=== PATIENT | male | born 1970 | race Caucasian/White ===

== ENCOUNTER 2018-07-13 21:13 | Emergency (ER) | payer OTHER, SELFPAY ==
[2018-07-13 21:22] VITALS: BP 159/103; PULSE 68; RESP 16; TEMP 36.6; O2SAT 100
--- NOTE | 2018-07-13 22:42 | ED_ITS ---
HPI - Neck Pain/Injury General Chief Complaint: Neck Pain/Injury Stated Complaint: RT SIDED NECK SWELLING Time Seen by Provider: 07/13/18 22:02 Source: patient Mode of arrival: ambulatory Limitations: no limitations History of Present Illness HPI Narrative: Patient states that he had sudden onset of swelling under his right jaw. He states it occurred while he was eating, but he did not notice it at its full extent until he was finished eating. Patient denies pain he states there is just a pressure sensation. Patient does feel that the swelling has gone down in the ensuing hour, the patient is concerned about why this happened. He states this is never happened before. He is not aware of any congenital anomalies in the neck. He has not had any recent illnesses. Specifically no upper respiratory symptoms or sore throat. Patient denies fevers no dental pain or trauma. He states his wisdom teeth have been removed. Patient denies neck trauma. Onset (ago): hour(s) Place: home Radiation: right lateral Quality: dull Duration: improved Relieving factors: none Exacerbating factors: none Associated symptoms: none Related Data Home Medications Medication Instructions Recorded Confirmed No Known Home Medications 07/13/18 07/13/18 Allergies Allergy/AdvReac Type Severity Reaction Status Date / Time No Known Drug Allergies Allergy Verified 07/13/18 21:28 Review of Systems Review of Systems All systems reviewed & are unremarkable except as noted in HPI and below Constitutional Denies chills, Denies fever(s), Denies lethargy and Denies weakness Eyes Denies change in vision, Denies eye discharge, Denies irritation and Denies loss of vision ENT Ears, Nose, Mouth, and Throat: Denies change in voice, Denies neck pain and Denies sore throat Cardiovascular Denies chest pain, Denies irregular heart rhythm, Denies lightheadedness, Denies palpitations, Denies dyspnea, Denies dyspnea on exertion and Denies orthopnea Respiratory Denies cough, Denies dyspnea, Denies dyspnea on exertion and Denies wheezing Gastrointestinal Gastrointestinal: Denies abdominal pain, Denies change in bowel habits, Denies diarrhea, Denies nausea and Denies vomiting Genitourinary Denies hematuria, Denies flank pain, Denies urinary incontinence and Denies urinary urgency Musculoskeletal Denies neck pain Integumentary/Breasts Denies pruritus, Denies erythema, Denies rash and Denies wounds Neurologic Denies confusion, Denies loss of vision and Denies weakness Psychiatric Denies anxiety, Denies confusion, Denies depression, Denies homicidal ideation and Denies suicidal ideation Endocrine Denies palpitations Hematologic/Lymphatic Denies easy bruising Allergic/Immunologic Denies wheezing PFSH Social History Smoking Status: Never smoker Exam Initial Vital Signs Initial Vital Signs: Vital Signs Temperature 97.9 F 07/13/18 21:22 Pulse Rate 68 07/13/18 21:22 Respiratory Rate 16 07/13/18 21:22 Blood Pressure 159/103 H 07/13/18 21:22 Pulse Oximetry 100 07/13/18 21:22 Const General: cooperative and well developed Nutritional Appearance: well nourished Orientation: alert, awake, oriented x3 and not confused HENMT Head: normocephalic and atraumatic Ears: external ears normal Nose: external nose normal and No nasal discharge Face and sinus: sinuses nontender, face symmetric, no sinus tenderness and No dry mucous membranes Mouth: oral mucosae normal, moist mucous membranes and other (No tenderness or swelling of the floor of the mouth.) Teeth and gingiva: dentition normal Throat: tonsils normal and uvula midline Eyes General: appearance normal, both eyes and all related structures Eyelids: eyelids normal Conjunctivae: conjunctivae normal Sclera: sclerae normal Pupils: PERRL EOM: EOM intact bilaterally Neck Neck: full ROM, no meningeal signs, trachea midline, supple and anterior neck swelling (Patient has moderate enlargement of his right submandibular area. There is no distinct mass. No lymphadenopathy. No erythema or induration. No tenderness. No fluctuance.) Thyroid: thyroid normal Lymphatic: No lymphadenopathy Resp Effort & Inspection: normal respiratory effort and able to speak in complete sentences Back/Spine/Pelvis Cervical Spine: cervical ROM normal, No cervical muscular tenderness, No pain with cervical ROM and No cervical spinal tenderness Skin General: no rashes or lesions noted Neuro General: alert, awake and oriented x3 Extrem General: full ROM Psych Appearance: grossly normal Mental Status: mental status grossly normal Speech and Movement: speech and movement normal Course Hospital Course: I discussed with the patient the various potential causes of his submandibular swelling. I most strongly suspected submandibular gland pathology, due to the sudden appearance of the swelling, as well as the association with eating and the improvement since patient has ceased eating. He was sent for CT scan to evaluate for this and other pathology, and was found to have sialoadenitis of the submandibular gland on the right without a definite stone. I have discussed with the patient the symptomatic treatments for submandibular sialoadenitis, including using sialagogues such as lemon candies, applying heat , and massaging the area. The patient expresses understanding. No emergent condition has been identified, and patient stable for discharge home. Vital Signs - 8 hr 07/14/18 00:53 Pulse Rate 65 Respiratory Rate 15 Blood Pressure 148/100 H Pulse Oximetry 97 MDM - Neck Pain/Injury Differential Diagnosis Likely other Medical Records Attestation: I reviewed the patient's medical records. Imaging Data CT soft tissue neck with IV contrast: Radiologist's impression: PROCEDURE: CT SOFT TISSUE NECK W CON INDICATIONS: Right sided neck swelling TECHNIQUE: After the administration of intravenous contrast, 3.0 mm axial sections acquired from the sella to the aortic arch. Additional oblique axial 3.0 mm sections acquired through the pharynx. 3 mm thick coronal and sagittal reformats were generated. For radiation dose reduction, the following was used: automated exposure control. COMPARISON: None. FINDINGS: Image quality: Excellent. Lymph nodes: No enlarged lymph nodes seen throughout the neck. Vessels: Visualized vasculature appears patent. Neck spaces: The oropharynx, nasopharynx, and pharynx demonstrate no mucosal lesions. The vocal cords, false vocal cords, pyriform sinuses, epiglottis, vallecula, and tongue base all appear normal. Extramucosal spaces appear unremarkable. Glands: Mild enlargement of the right submandibular gland is noted. Mild inflammatory changes noted adjacent to the right submandibular gland. No right submandibular gland calcified stone. The left submandibular gland is normal in appearance. The parotid glands appear normal. Thyroid gland is within normal limits. Miscellaneous: Visualized brain and orbits appear normal. Lung apices appear clear. Superficial soft tissues appear normal. Bones: No suspicious bony lesions. Spine degenerative disc changes noted. Visualized sinuses and mastoids appear unremarkable. IMPRESSION: 1. Right submandibular sialoadenitis without definite ductal stone. 2. No abscess. Dictated by: Latosha Hernandez MD, PhD on 07/14/2018 at 8:06 Approved by: Latosha Hernandez MD, PhD on 07/14/2018 at 8:10 Discharge Plan Departure Patient Disposition: Home Clinical Impression: Submandibular gland swelling Discharge Date/Time: 07/14/18 00:55 Interventions: ED Discharge Assessment Last Done: 07/14/18 00:53 Activity Restrictions/Additional Instructions: Your CT scan shows enlargement and inflammation of your submandibular salivary gland. The duct that drains the gland is also slightly enlarged, which indicates obstruction, most likely from a tiny stone. However, at this time, the stone is no longer visible, and has likely passed on its own. This is most likely why you have noticed some improvement in the swelling. Given that you do not have any signs of infection, but gland should continue to go down on its own , and return to its normal size. Should you have symptoms like this in the future, sucking on lemon candies and applying hot pack to the gland area can and help encourage the gland to drain. If you develop redness or firmness of the gland with pain and fever, you may have an infection of the gland, and should be seen by your doctor or in an urgent or emergent setting to get antibiotics. Prescriptions: No Action No Known Home Medications RF: 0 Referrals: [facility] [Provider Group] Stephen Cook MD [Non-Staff] -
--- NOTE | 2018-07-13 22:58 | DI.CT.S_ITS ---
PROCEDURE: CT SOFT TISSUE NECK W CON INDICATIONS: Right sided neck swelling TECHNIQUE: After the administration of intravenous contrast, 3.0 mm axial sections acquired from the sella to the aortic arch. Additional oblique axial 3.0 mm sections acquired through the pharynx. 3 mm thick coronal and sagittal reformats were generated. For radiation dose reduction, the following was used: automated exposure control. COMPARISON: None. FINDINGS: Image quality: Excellent. Lymph nodes: No enlarged lymph nodes seen throughout the neck. Vessels: Visualized vasculature appears patent. Neck spaces: The oropharynx, nasopharynx, and pharynx demonstrate no mucosal lesions. The vocal cords, false vocal cords, pyriform sinuses, epiglottis, vallecula, and tongue base all appear normal. Extramucosal spaces appear unremarkable. Glands: Mild enlargement of the right submandibular gland is noted. Mild inflammatory changes noted adjacent to the right submandibular gland. No right submandibular gland calcified stone. The left submandibular gland is normal in appearance. The parotid glands appear normal. Thyroid gland is within normal limits. Miscellaneous: Visualized brain and orbits appear normal. Lung apices appear clear. Superficial soft tissues appear normal. Bones: No suspicious bony lesions. Spine degenerative disc changes noted. Visualized sinuses and mastoids appear unremarkable. IMPRESSION: 1. Right submandibular sialoadenitis without definite ductal stone. 2. No abscess. Dictated by: Latosha Hernandez MD, PhD on 07/14/2018 at 8:06 Approved by: Latosha Hernandez MD, PhD on 07/14/2018 at 8:10
[2018-07-14 00:53] VITALS: BP 148/100; PULSE 65; RESP 15; O2SAT 97
== END 2018-07-14 00:55 | disposition home or self-care (01) ==
PROVIDERS: Emergency Provider Emergency Medicine
DX: R60.9 Edema, unspecified (principal)
CPT/HCPCS: 36591; 70491; 99283; 99285; Q9967

== ENCOUNTER → 2020-10-31 11:46 | Outpatient (CLI) | payer OTHER, SELFPAY ==
[2020-10-31 13:33] LABS: Alanine Aminotransferase 25 IU/L (<50); Albumin 4.3 g/dL (3.5-5.0); Albumin Globulin Ratio 1.4 (1.0-2.8); Alkaline Phosphatase 85 U/L (38-126); Aspartate Aminotransferase 26 IU/L (17-59); BUN Creatinine Ratio 23.7 (6-22); Bilirubin Total 2.1 mg/dL (0.2-1.3); Blood Urea Nitrogen 23 mg/dL (9-20); Calcium 9.4 mg/dL (8.4-10.2); Carbon Dioxide 30 mmol/L (22-32); Chloride 103 mmol/L (98-107); Cholesterol 237 mg/dL (140-199); Estimated Glomerular Filt Rate > 60.0 mL/min (>60); Globulin 3.1 g/dL (1.7-4.1); Glucose 95 mg/dL (70-100); HDL Cholesterol 41 mg/dL (40-60); HEMOLYSIS < 15 (0-50); LDL Cholesterol Calculated 160 mg/dL (<100); Potassium 4.3 mmol/L (3.4-5.1); Sodium 139 mmol/L (137-145); Total Protein 7.4 g/dL (6.3-8.2); Triglycerides 180 mg/dL (35-150)
== END ==
PROVIDERS: PCP Internal Medicine; Referring Provider Internal Medicine; Visit Provider Internal Medicine
DX: Z13.1 Encounter for screening for diabetes mellitus (principal); Z13.220 Encounter for screening for lipoid disorders; Z13.6 Encounter for screening for cardiovascular disorders; I10 Essential (primary) hypertension
CPT/HCPCS: 36415; 80053; 80061; 84443

== ENCOUNTER → 2020-12-15 16:42 | Outpatient (CLI) | payer OTHER, SELFPAY ==
[2020-12-21 07:10] LABS: Percent Free Testosterone 3.96 % (1.50-4.20); Testosterone Free 12.26 ng/dL (5.00-21.00); Testosterone Total 309.6 ng/dL (264.0-916.0)
== END ==
PROVIDERS: PCP Internal Medicine; Referring Provider Internal Medicine; Visit Provider Internal Medicine
DX: E29.1 Testicular hypofunction (principal)
CPT/HCPCS: 36415; 84402; 84403

== ENCOUNTER → 2020-12-16 11:42 | Outpatient (CLI) | payer OTHER, SELFPAY ==
[2020-12-17 09:51] LABS: Fecal Immunochemical Test Negative (Negative)
== END ==
PROVIDERS: PCP Internal Medicine; Referring Provider Internal Medicine; Visit Provider Internal Medicine
DX: Z12.11 Encounter for screening for malignant neoplasm of colon (principal)
CPT/HCPCS: 82274

== ENCOUNTER → 2021-11-04 10:28 | Outpatient (CLI) | payer OTHER, SELFPAY ==
[2021-11-04 12:43] LABS: COVID19 -Nasal RAPID POSITIVE (Negative)
== END ==
PROVIDERS: PCP Internal Medicine; Visit Provider Physician Assistant
DX: Z20.822 Contact with and (suspected) exposure to COVID-19 (principal); R51.9 Headache, unspecified; R50.9 Fever, unspecified; R53.83 Other fatigue
CPT/HCPCS: 87635

== ENCOUNTER → 2021-12-24 15:47 | Outpatient (CLI) | payer OTHER, SELFPAY ==
[2021-12-25 15:25] LABS: Fecal Immunochemical Test Negative (Negative)
== END ==
PROVIDERS: PCP Internal Medicine; Referring Provider Internal Medicine; Visit Provider Internal Medicine
DX: Z12.11 Encounter for screening for malignant neoplasm of colon (principal)
CPT/HCPCS: 82274

== ENCOUNTER → 2022-09-15 09:02 | Outpatient (CLI) | payer OTHER, SELFPAY ==
[2022-09-15 09:53] LABS: Alanine Aminotransferase 26 IU/L (<50); Albumin Globulin Ratio 1.3 (1.0-2.8); Alkaline Phosphatase 79 U/L (38-126); Aspartate Aminotransferase 26 IU/L (17-59); BUN Creatinine Ratio 15.9 (6-22); Bilirubin Total 1.5 mg/dL (0.2-1.3); Blood Urea Nitrogen 17 mg/dL (9-20); Calcium 8.9 mg/dL (8.4-10.2); Carbon Dioxide 30 mmol/L (22-32); Chloride 104 mmol/L (98-107); Cholesterol 209 mg/dL (140-199); Estimated Glomerular Filt Rate > 60 mL/min (>60); Globulin 3.2 g/dL (1.7-4.1); Glucose 105 mg/dL (70-100); HDL Cholesterol 37 mg/dL (40-60); HEMOLYSIS < 15 (0-50); LDL Cholesterol Calculated 155 mg/dL (<100); Potassium 3.8 mmol/L (3.4-5.1); Sodium 140 mmol/L (137-145); Total Protein 7.2 g/dL (6.3-8.2); Triglycerides 84 mg/dL (35-150)
== END ==
PROVIDERS: PCP Internal Medicine; Referring Provider Internal Medicine; Visit Provider Internal Medicine
DX: R03.0 Elevated blood-pressure reading, without diagnosis of hypertension (principal); Z13.1 Encounter for screening for diabetes mellitus; Z13.6 Encounter for screening for cardiovascular disorders; Z79.899 Other long term (current) drug therapy
CPT/HCPCS: 36415; 80053; 80061

== ENCOUNTER → 2024-03-28 07:54 | Outpatient (CLI) | payer OTHER, SELFPAY ==
[2024-03-28 08:55] LABS: Add Manual Diff / Slide Review NO; Basophils Absolute Auto 100 /uL (0-100); Eosinophils Absolute Auto 300 /uL (0-450); Eosinophils Percent Auto 4.2 % (2-4); Hematocrit 46.5 % (41-53); Hemoglobin 15.9 g/dL (13.5-17.5); Lymphocytes Absolute Auto 2300 /uL (1100-4500); Lymphocytes Percent Auto 36.3 % (25-40); Mean Corpuscular HGB Conc 34.2 % (30-36); Mean Corpuscular Hemoglobin 31.4 PG (26-34); Mean Corpuscular Volume 91.8 fL (80-100); Monocytes Absolute Auto 700 /uL (0-900); Monocytes Percent Auto 11.3 % (3-14); Neutrophils Absolute Auto 2900 /uL (1500-7000); Neutrophils Percent Auto 47.2 % (50-75); Platelet Count 219 X10^3/uL (150-400); Red Blood Cell Count 5.06 X10^6/uL (4.5-5.9); Red Cell Distribution Width 13.2 % (11.6-14.8); White Blood Cell Count 6.3 X10^3/uL (4.5-11.0)
[2024-03-28 09:01] LABS: Alanine Aminotransferase 23 IU/L (<50); Albumin 4.1 g/dL (3.5-5.0); Albumin Globulin Ratio 1.6 (1.0-2.8); Alkaline Phosphatase 78 U/L (38-126); Aspartate Aminotransferase 23 IU/L (17-59); BUN Creatinine Ratio 18.6 (6-22); Bilirubin Total 1.8 mg/dL (0.2-1.3); Blood Urea Nitrogen 19 mg/dL (9-20); Calcium 9.1 mg/dL (8.4-10.2); Carbon Dioxide 29 mmol/L (22-32); Chloride 106 mmol/L (98-107); Cholesterol 191 mg/dL (140-199); Estimated Glomerular Filt Rate > 60 mL/min (>60); Globulin 2.5 g/dL (1.7-4.1); Glucose 97 mg/dL (70-100); HDL Cholesterol 42 mg/dL (40-60); HEMOLYSIS < 15 (0-50); LDL Cholesterol Calculated 119 mg/dL (<100); Potassium 4.2 mmol/L (3.4-5.1); Sodium 139 mmol/L (137-145); Total Protein 6.6 g/dL (6.3-8.2); Triglycerides 150 mg/dL (35-150)
== END ==
PROVIDERS: PCP Internal Medicine; Referring Provider Internal Medicine; Visit Provider Internal Medicine
DX: I10 Essential (primary) hypertension (principal); D64.9 Anemia, unspecified; E03.9 Hypothyroidism, unspecified
CPT/HCPCS: 36415; 80053; 80061; 84443; 85025

== ENCOUNTER → 2024-10-15 08:24 | Outpatient (CLI) | payer OTHER, SELFPAY ==
[2024-10-16 12:14] LABS: Fecal Immunochemical Test Negative (Negative)
== END ==
PROVIDERS: PCP Internal Medicine; Referring Provider Internal Medicine; Visit Provider Internal Medicine
DX: Z12.11 Encounter for screening for malignant neoplasm of colon (principal)
CPT/HCPCS: 82274

== ENCOUNTER 2025-02-27 10:52 | Day surgery (SDC) | payer OTHER, SELFPAY ==
[2025-02-15 13:31] VITALS: BMI 29.6
[2025-02-27 11:12] VITALS: BMI 29.6
[2025-02-27] MEDS: LACTATED RINGERS 1,000 ML 42 ML IV (11:28)
[2025-02-27 11:30] VITALS: BP 146/93; PULSE 92; RESP 17; TEMP 36.8; O2SAT 94
[2025-02-27] MEDS: TIZANIDINE 4 MG TABLET PO (11:47)
[2025-02-27] MEDS: ACETAMINOPHEN 325 MG TABLET 975 MG PO (11:47)
--- NOTE | 2025-02-27 12:32 | P.HP_ITS ---
History of Present Illness History of Present Illness Date Patient Seen: 02/27/25 Time Patient Seen: 12:32 Chief complaint: Open umbilical hernia repair w/mesh Narrative: Killian is a 54 year old man with an umbilical hernia. It has been there for a few years. At first it was asymptomatic but it has started to hurt recently. 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 [facility] Medical History (Updated 10/29/24 @ 16:23 by Aroldo Herrera MD) Chronic cough Gilbert syndrome Essential hypertension Umbilical hernia COVID-19 (~10/2021) Elevated blood pressure reading Erectile dysfunction Surgical History (Updated 07/23/22 @ 16:14 by Aroldo Herrera MD) S/P vasectomy Anesthesia History of hernia surgery S/P wisdom tooth extraction Family History (Updated 12/06/20 @ 19:19 by Jaclyn Davey) Father Lung cancer Hypertension Cancer Hyperlipidemia Brother Hyperlipidemia Hypertension Mental health disorder Mother Mental health disorder Social History household members: spouse Smoking Status: Never smoker alcohol intake: current Meds Home Medications and Allergies Home Medications Medication Instructions Recorded Confirmed Type sildenafil 100 mg tablet 50 - 100 mg (0.5 - 1 x 100 mg) PO 06/20/24 01/18/25 Rx DAILY PRN sexual activity #10 tabs valsartan 80 mg tablet 80 mg PO DAILY #90 tabs 10/29/24 02/27/25 Rx Allergies Allergy/AdvReac Type Severity Reaction Status Date / Time lisinopril AdvReac Intermediate Cough Verified 02/27/25 11:18 Exam Vital Signs (past 8 hours): - 02/27/25 11:30 Temperature 98.3 F Pulse Rate 92 H Respiratory Rate 17 Blood Pressure 146/93 H Pulse Oximetry 94 Oxygen Delivery Method Room Air Oxygen Delivery Method Room Air Narrative Exam Narrative: Gen: NAD, sitting comfortably in bed, appears well HEENT: Sclera are anicteric, head is normocephalic and atraumatic, trachea is midline. CV: RRR, no JVD Resp: clear to auscultation bilaterally, equal chest wall movement bilaterally Abd: soft, nontender, normoactive bowel sounds. Supraumbilical ventral hernia proximally 4 cm in size Ext: no edema, full range of motion Neuro: Cranial nerves II-XII grossly intact, no focal deficits Skin: No erythema or ecchymosis Assessment & Plan Assessment and plan (1) Umbilical hernia: Qualifiers: Obstruction and gangrene presence: without obstruction or gangrene Qualified Code(s): K42.9 - Umbilical hernia without obstruction or gangrene Status: Chronic Plan Risks include but are not limited to bleeding, infection, 5% chance of chronic pain, 1 in a 1000 chance of needing mesh explantation in the future, 2% chance of recurrence of the hernia. Risks of observation include a 50% chance over the next 10 years of worsening pain that would drive him to have surgery regardless, unlikely chance of incarceration or strangulation. Patient agrees to proceed with: Open repair of ventral hernia with mesh Time-Based Coding :: [TOTAL MINUTES] spent with patient and on the chart (including review of chart, obtaining history, exam, reviewing outside data, placing orders, documenting exam and treatment plan, and counseling patient) on [DATE]. PROFEE Drain Tiler Document charge(s): Yes
[2025-02-27] MEDS: CEFAZOLIN 2 GM/100 ML PREMIX 100 ML IV (13:02)
--- NOTE | 2025-02-27 13:03 | SUR.OPER ---
Supine on padded OR bed, head on pillow, arms secured on padded arm boards at <90 degrees abduction, legs uncrossed, safety belt at thigh, tape over blanket over lower legs.
[2025-02-27] MEDS: LIDOCAINE 1% 20 ML INJ (13:11)
[2025-02-27] MEDS: BUPIVACAINE 0.25% W/ EPI 30 ML VIAL INJ (13:12)
--- NOTE | 2025-02-27 13:21 | P.OP_ITS ---
Operative Date/Time/Diagnoses Date of procedure: 02/27/25 Time of procedure: 13:21 Pre-op diagnosis: Ventral hernia Post-op diagnosis: same Procedure & Clinicians Procedure: Open repair of ventral hernia less than 3 cm in size, with mesh, 4.3 cm Bard Ventralex round Same procedure as scheduled: Yes Indications: Painful umbilical hernia Surgeon: Yuri Guajardo Head Of Operation And Logistics: Curry Valdes Click Yes if Unassisted: No Anesthesia Type: General Operative Notes Findings: Fat within the hernia Closure Type: primary Specimen(s): none sent Prosthetic devices, grafts, tissues, transplants, or devices: 4.3 cm Bard Ventralex Estimated Blood Loss (mL): 15 Blood products transfused: none Procedure in detail: Consent was obtained. Patient was brought to the operating room suite. Time- out was performed. The abdomen was shaved prepped and draped in usual fashion. Total of 40 mL of 0.5% Marcaine and 1% lidocaine with epinephrine were infiltrated around the incision and field block. A supraumbilical incision was made and carried down to the anterior rectus fibers. Metzenbaum scissors were used to clean the hernia sac away from surrounding tissue. The defect measured proximally 2 cm in size. Finger dissection was used to clear out a preperitoneal plane to accommodate mesh. A 4.3 cm Bard Ventralex round mesh was then placed in the preperitoneal space. Interrupted 0 Ethibond were used to close the anterior fascia. Skin was closed 4-0 Monocryl and Dermabond. Patient tolerated procedure well was transferred to PACU in stable condition for anticipated same-day discharge. Complications: none Post-operative Condition: stable Disposition: PACU Plan for aftercare: home
[2025-02-27 13:23] VITALS: BP 96/63; PULSE 89; RESP 18; TEMP 36.7; O2SAT 98
[2025-02-27 13:28] VITALS: BP 105/66; PULSE 86; RESP 20; O2SAT 92
[2025-02-27 13:33] VITALS: BP 106/72; PULSE 91; RESP 14; O2SAT 94
[2025-02-27 13:37] VITALS: BP 105/63; PULSE 93; RESP 12; TEMP 36.6; O2SAT 95
[2025-02-27 13:42] VITALS: BP 115/76; PULSE 85; RESP 15; O2SAT 95
== END 2025-02-27 14:08 | disposition home or self-care (01) ==
PROVIDERS: PCP Internal Medicine; Referring Provider Surgery; Visit Provider Surgery
PROC: (CPT 49591; principal; 2025-02-27 14:15)
DX: K42.9 Umbilical hernia without obstruction or gangrene (principal)
CPT/HCPCS: 49591; C1781; J0690; J2704; J3010

== ENCOUNTER → 2025-10-22 14:31 | Outpatient (CLI) | payer OTHER, SELFPAY ==
[2025-10-22 16:01] LABS: Blood Urea Nitrogen 17 mg/dL (9-20); Calcium 9.2 mg/dL (8.4-10.2); Carbon Dioxide 27 mmol/L (22-32); Chloride 106 mmol/L (98-107); Estimated Glomerular Filt Rate > 60 mL/min (>60); Glucose 72 mg/dL (70-99); HEMOLYSIS 34 (0-50); Potassium 4.3 mmol/L (3.4-5.1); Sodium 140 mmol/L (137-145)
== END ==
PROVIDERS: PCP Internal Medicine; Referring Provider Internal Medicine; Visit Provider Internal Medicine
DX: Z12.11 Encounter for screening for malignant neoplasm of colon (principal); Z12.5 Encounter for screening for malignant neoplasm of prostate; I10 Essential (primary) hypertension
CPT/HCPCS: 80048; 82274; G0103